=== PATIENT | male | born 1965 | race Caucasian/White ===

== ENCOUNTER → 2017-03-06 | Outpatient (REF) | payer SELFPAY ==
[2017-03-06 12:03] LABS: ALBUMIN 4.2 GM/DL (3.2-5.2); ALBUMIN/GLOBULIN RATIO 1.35 (1.00-1.93); ALKALINE PHOSPHATASE 80 U/L (45-117); ALT/SGPT 39 U/L (12-78); ANION GAP 6 MEQ/L (8-16); AST/SGOT 31 U/L (15-37); BILIRUBIN,TOTAL 0.7 MG/DL (0.2-1.0); BLOOD UREA NITROGEN 18 MG/DL (7-18); CALCIUM LEVEL 8.8 MG/DL (8.5-10.1); CARBON DIOXIDE LEVEL 31 MEQ/L (21-32); CHLORIDE LEVEL 106 MEQ/L (98-107); CHOLESTEROL LEVEL 209 MG/DL (<200); GLOMERULAR FILTRATION RATE > 60.0 (>60); GLUCOSE, FASTING 76 MG/DL (70-105); POTASSIUM SERUM 4.2 MEQ/L (3.5-5.1); SODIUM LEVEL 143 MEQ/L (136-145); TOTAL PROTEIN 7.3 GM/DL (6.4-8.2); TRIGLYCERIDES LEVEL 106 MG/DL (<150)
== END ==
LOC: M SFHCPLAZ 10:09
PROVIDERS: ATTEND Internal Medicine
DX: E78.00 Pure hypercholesterolemia, unspecified (principal)

== ENCOUNTER → 2018-06-08 | Outpatient (REF) | payer SELFPAY ==
[2018-06-08 11:54] LABS: HEMATOCRIT 43.3 % (42.0-52.0); HEMOGLOBIN 14.9 g/dl (13.5-17.5); MEAN CORPUSCULAR HEMOGLOBIN 28.8 pg (27.0-33.0); MEAN CORPUSCULAR HGB CONC 34.4 g/dl (32.0-36.5); MEAN CORPUSCULAR VOLUME 83.6 fl (80.0-96.0); PLATELET COUNT, AUTOMATED 305 10^3/uL (150-450); RED BLOOD COUNT 5.18 10^6/uL (4.30-6.10); RED CELL DISTRIBUTION WIDTH 12.2 % (11.5-14.5); WHITE BLOOD COUNT 6.2 10^3/uL (4.0-10.0)
[2018-06-08 15:56] LABS: ALBUMIN 4.4 GM/DL (3.2-5.2); ALBUMIN/GLOBULIN RATIO 1.57 (1.00-1.93); ALKALINE PHOSPHATASE 87 U/L (45-117); ALT/SGPT 47 U/L (12-78); ANION GAP 8 MEQ/L (8-16); AST/SGOT 24 U/L (7-37); BILIRUBIN,TOTAL 0.5 MG/DL (0.2-1.0); BLOOD UREA NITROGEN 18 MG/DL (7-18); CALCIUM LEVEL 9.2 MG/DL (8.5-10.1); CARBON DIOXIDE LEVEL 27 MEQ/L (21-32); CHLORIDE LEVEL 106 MEQ/L (98-107); CHOLESTEROL LEVEL 212 MG/DL (<200); CHOLESTEROL RISK RATIO 4.818 (<5); CREATININE FOR GFR 0.95 MG/DL (0.70-1.30); GLOMERULAR FILTRATION RATE > 60.0 (>56); GLUCOSE, FASTING 79 MG/DL (70-100); HDL CHOLESTEROL 44 MG/DL (>40); LDL CHOLESTEROL 136 MG/DL (<100); NON-HDL-C 168 MG/DL; POTASSIUM SERUM 4.3 MEQ/L (3.5-5.1); SODIUM LEVEL 141 MEQ/L (136-145); TOTAL PROTEIN 7.2 GM/DL (6.4-8.2); TRIGLYCERIDES LEVEL 161 MG/DL (<150)
== END ==
LOC: M SFHCPLAZ 10:22
DX: E78.00 Pure hypercholesterolemia, unspecified (principal); F99 Mental disorder, not otherwise specified

== ENCOUNTER 2019-03-22 07:23 | Day surgery (SDC) | payer BC ==
[~2019-03-22] VITALS: Ht 175.3 cm; Wt 86.7 kg
[~2019-03-22 07:23] MED LIST: AMBI5TAB PO; ASPI81TA85 PO; GEOD40CA13 PO; NS 1,000 ML IV SCH; PRAV40TA2 PO; SERT-138 PO
[2019-03-22] MEDS ORDERED: PROPOFOL 200 MG/20 ML VIAL As Ordered ONE (07:40)
[2019-03-22] MEDS ORDERED: LIDOCAINE 2% INJ 100 MG/5 ML SDV (FOR ANES.) As Ordered ONE (07:40)
--- NOTE | 2019-03-22 09:30 | ROOR ---
Patient Name: Tommie Vásquez Procedure Date: 03/22/2019 8:56 AM Date of : 1965 Age: 53 Room: [facility] Gender: Male Note Status: Finalized Procedure: Colonoscopy Indications: Screening for colorectal malignant neoplasm Providers: Benjamin Varela MD Referring MD: Allan Salinas MD Requesting Provider: Medicines: Monitored Anesthesia Care Complications: No immediate complications. Procedure: Pre-Anesthesia Assessment: - Prior to the procedure, a History and Physical was performed, and patient medications and allergies were reviewed. The patient is competent. The risks and benefits of the procedure and the sedation options and risks were discussed with the patient. All questions were answered and informed consent was obtained. Patient identification and proposed procedure were verified by the physician, the nurse and the anesthesiologist in the procedure room. Mental Status Examination: alert and oriented. Airway Examination: normal oropharyngeal airway and neck mobility. Respiratory Examination: clear to auscultation. CV Examination: normal. Prophylactic Antibiotics: The patient does not require prophylactic antibiotics. Prior Anticoagulants: The patient has taken no previous anticoagulant or antiplatelet agents. ASA Grade Assessment: II - A patient with mild systemic disease. After reviewing the risks and benefits, the patient was deemed in satisfactory condition to undergo the procedure. The anesthesia plan was to use monitored anesthesia care (MAC). Immediately prior to administration of medications, the patient was re-assessed for adequacy to receive sedatives. The heart rate, respiratory rate, oxygen saturations, blood pressure, adequacy of pulmonary ventilation, and response to care were monitored throughout the procedure. The physical status of the patient was re-assessed after the procedure. The Colonoscope was introduced through the anus and advanced to the terminal ileum, with identification of the appendiceal orifice and IC valve. The colonoscopy was performed without difficulty. The patient tolerated the procedure well. The quality of the bowel preparation was good. The terminal ileum, ileocecal valve, appendiceal orifice, and rectum were photographed. Scope insertion time was 2 minutes. Scope withdrawal time was 10 minutes. The total duration of the procedure was 12 minutes. Findings: The perianal and digital rectal examinations were normal. The terminal ileum appeared normal. A 8 mm polyp was found in the transverse colon. The polyp was sessile. The polyp was removed with a cold snare. Resection and retrieval were complete. Verification of patient identification for the specimen was done by the physician and nurse using the patient's name, date and medical record number. Estimated blood loss was minimal. A 4 mm polyp was found in the rectum. The polyp was sessile. The polyp was removed with a cold snare. Resection and retrieval were complete. Scattered small and large-mouthed diverticula were found from sigmoid to ascending colon. There was no evidence of diverticular bleeding. Non-bleeding external and internal hemorrhoids were found during retroflexion. The hemorrhoids were small. Impression: - The examined portion of the ileum was normal. - One 8 mm polyp in the transverse colon, removed with a cold snare. Resected and retrieved. - One 4 mm polyp in the rectum, removed with a cold snare. Resected and retrieved. - Moderate diverticulosis from sigmoid to ascending colon. There was no evidence of diverticular bleeding. - Non-bleeding external and internal hemorrhoids. Recommendation: - Patient has a contact number available for emergencies. The signs and symptoms of potential delayed complications were discussed with the patient. Return to normal activities tomorrow. Written discharge instructions were provided to the patient. - High fiber diet. - Continue present medications. - Await pathology results. - Repeat colonoscopy in 5-10 years for surveillance based on pathology results. - Telephone GI clinic for pathology results in 2 weeks. - Return to primary care physician. Benjamin Varela MD Benjamin Varela MD 03/22/2019 9:30:32 AM Electronically signed by Benjamin Varela MD Number of Addenda: 0 Note Initiated On: 03/22/2019 8:56 AM Estimated Blood Loss: Estimated blood loss: none.
[2019-03-22 09:44] VITALS: BP 118/77
== END 2019-03-22 09:52 | disposition home or self-care (01) ==
LOC: M OPP 07:23
PROVIDERS: ATTEND Internal Medicine Gastroenterology
DX: Z12.11 Encounter for screening for malignant neoplasm of colon (principal); D12.3 Benign neoplasm of transverse colon; K62.1 Rectal polyp; K57.30 Diverticulosis of large intestine without perforation or abscess without bleeding; E78.5 Hyperlipidemia, unspecified; F41.9 Anxiety disorder, unspecified; F32.9 Major depressive disorder, single episode, unspecified; Z79.82 Long term (current) use of aspirin; Z79.899 Other long term (current) drug therapy

== ENCOUNTER → 2019-06-05 | Outpatient (REF) | payer SELFPAY ==
[~2019-06-05] MED LIST changes: -NS 1,000 ML IV SCH
[2019-06-05 10:57] LABS: MEAN CORPUSCULAR HEMOGLOBIN 28.8 pg (27.0-33.0); MEAN CORPUSCULAR HGB CONC 34.1 g/dl (32.0-36.5); MEAN CORPUSCULAR VOLUME 84.5 fl (80.0-96.0); PLATELET COUNT, AUTOMATED 286 10^3/uL (150-450); RED BLOOD COUNT 5.21 10^6/uL (4.30-6.10); WHITE BLOOD COUNT 5.9 10^3/uL (4.0-10.0)
[2019-06-05 11:27] LABS: ALT/SGPT 46 U/L (12-78); BILIRUBIN,TOTAL 0.6 MG/DL (0.2-1.0); BLOOD UREA NITROGEN 18 MG/DL (7-18); CALCIUM LEVEL 8.8 MG/DL (8.5-10.1); CARBON DIOXIDE LEVEL 28 MEQ/L (21-32); CHLORIDE LEVEL 107 MEQ/L (98-107); CHOLESTEROL LEVEL 206 MG/DL (<200); CHOLESTEROL RISK RATIO 4.382 (<5); CREATININE FOR GFR 0.99 MG/DL (0.70-1.30); GLOMERULAR FILTRATION RATE > 60.0 (>56); GLUCOSE, FASTING 79 MG/DL (70-100); HDL CHOLESTEROL 47 MG/DL (>40); LDL CHOLESTEROL 135 MG/DL (<100); NON-HDL-C 159 MG/DL; POTASSIUM SERUM 4.4 MEQ/L (3.5-5.1); SODIUM LEVEL 140 MEQ/L (136-145); TRIGLYCERIDES LEVEL 119 MG/DL (<150)
== END ==
LOC: M SFHCPLAZ 09:50
PROVIDERS: ATTEND Internal Medicine
DX: E78.00 Pure hypercholesterolemia, unspecified (principal)

== ENCOUNTER → 2020-06-17 | Outpatient (CLI) | payer BC ==
[~2020-06-17] MED LIST changes: -ASPI81TA85 PO; +ASPI81TA86 PO
[2020-06-17 14:10] LABS: HEMATOCRIT 43.9 % (42.0-52.0); HEMOGLOBIN 14.5 g/dl (13.5-17.5); MEAN CORPUSCULAR HEMOGLOBIN 28.3 pg (27.0-33.0); MEAN CORPUSCULAR VOLUME 85.6 fl (80.0-96.0); PLATELET COUNT, AUTOMATED 289 10^3/uL (150-450); RED BLOOD COUNT 5.13 10^6/uL (4.30-6.10)
[2020-06-17 14:44] LABS: ALBUMIN 4.2 GM/DL (3.2-5.2); ALT/SGPT 56 U/L (12-78); BILIRUBIN,TOTAL 0.7 MG/DL (0.2-1.0); BLOOD UREA NITROGEN 18 MG/DL (7-18); CALCIUM LEVEL 9.8 MG/DL (8.5-10.1); CARBON DIOXIDE LEVEL 30 MEQ/L (21-32); CHLORIDE LEVEL 107 MEQ/L (98-107); CHOLESTEROL LEVEL 212 MG/DL (<200); CHOLESTEROL RISK RATIO 4.711 (<5); CREATININE FOR GFR 1.04 MG/DL (0.70-1.30); GLOMERULAR FILTRATION RATE > 60.0 (>56); GLUCOSE, FASTING 84 MG/DL (70-100); HDL CHOLESTEROL 45 MG/DL (>40); LDL CHOLESTEROL 141 MG/DL (<100); NON-HDL-C 167 MG/DL; SODIUM LEVEL 141 MEQ/L (136-145); TOTAL PROTEIN 7.4 GM/DL (6.4-8.2); TRIGLYCERIDES LEVEL 128 MG/DL (<150)
== END ==
LOC: M PLALAB 10:52
PROVIDERS: ATTEND Internal Medicine
DX: E78.00 Pure hypercholesterolemia, unspecified (principal); Z86.010 Personal history of colon polyps; Z12.5 Encounter for screening for malignant neoplasm of prostate

== ENCOUNTER → 2021-06-23 | Outpatient (CLI) | payer BC ==
[2021-06-23 13:40] LABS: BASO % 0.7 % (0.0-1.0); EOS # 0.2 10^3/uL (0.0-0.5); EOS % 3.9 % (0.0-3.0); HEMATOCRIT 41.3 % (42.0-52.0); HEMOGLOBIN 13.9 g/dl (13.5-17.5); LYMPH # 1.2 10^3/uL (1.5-5.0); LYMPH % 20.1 % (24.0-44.0); MEAN CORPUSCULAR HEMOGLOBIN 28.7 pg (27.0-33.0); MEAN CORPUSCULAR HGB CONC 33.7 g/dl (32.0-36.5); MEAN CORPUSCULAR VOLUME 85.3 fl (80.0-96.0); MONO # 0.5 10^3/uL (0.0-0.8); MONO % 8.3 % (2.0-8.0); NEUTROPHILS # 3.9 10^3/uL (1.5-8.5); NEUTROPHILS % 66.7 % (36.0-66.0); PLATELET COUNT, AUTOMATED 291 10^3/uL (150-450); RED BLOOD COUNT 4.84 10^6/uL (4.30-6.10); WHITE BLOOD COUNT 5.9 10^3/uL (4.0-10.0)
[2021-06-23 14:14] LABS: ALBUMIN 4.2 GM/DL (3.2-5.2); ALT/SGPT 54 U/L (12-78); BILIRUBIN,TOTAL 0.6 MG/DL (0.2-1.0); BLOOD UREA NITROGEN 18 MG/DL (7-18); CALCIUM LEVEL 9.1 MG/DL (8.5-10.1); CARBON DIOXIDE LEVEL 28 MEQ/L (21-32); CHLORIDE LEVEL 108 MEQ/L (98-107); CHOLESTEROL LEVEL 199 MG/DL (<200); CHOLESTEROL RISK RATIO 4.145 (<5); CREATININE FOR GFR 1.01 MG/DL (0.70-1.30); GLOMERULAR FILTRATION RATE > 60.0 (>56); GLUCOSE, FASTING 89 MG/DL (70-100); HDL CHOLESTEROL 48 MG/DL (>40); LDL CHOLESTEROL 132 MG/DL (<100); NON-HDL-C 151 MG/DL; POTASSIUM SERUM 4.4 MEQ/L (3.5-5.1); SODIUM LEVEL 141 MEQ/L (136-145); THYROID STIMULATING HORMONE 0.847 uIU/ML (0.358-3.740); TOTAL PROTEIN 7.2 GM/DL (6.4-8.2); TRIGLYCERIDES LEVEL 93 MG/DL (<150)
[2021-06-23 15:17] LABS: HEPATITIS C VIRUS ABY INDEX 0.1 INDEX (<0.8)
== END ==
LOC: M PLALAB 10:32
PROVIDERS: ATTEND Internal Medicine
DX: Z00.00 Encounter for general adult medical examination without abnormal findings (principal); Z12.5 Encounter for screening for malignant neoplasm of prostate; Z86.010 Personal history of colon polyps; E78.00 Pure hypercholesterolemia, unspecified
CPT/HCPCS: 36415; 80053; 80061; 84443; 85025; 86803; G0103

== ENCOUNTER → 2021-06-23 | Outpatient (REF) | payer BC | LOC: M SFHCPLAZ 10:15 | PROVIDERS: ATTEND Internal Medicine | DX: Z00.00 Encounter for general adult medical examination without abnormal findings (principal); E78.00 Pure hypercholesterolemia, unspecified; Z86.010 Personal history of colon polyps; Z12.5 Encounter for screening for malignant neoplasm of prostate; Z11.59 Encounter for screening for other viral diseases ==

== ENCOUNTER 2021-11-11 15:32 | Inpatient (IN) | payer BC ==
[~2021-11-11] VITALS: Ht 175.3 cm; Wt 88.5 kg
[2021-11-11 17:21] LABS: HEMATOCRIT 43.1 % (42.0-52.0); HEMOGLOBIN 15.1 g/dl (13.5-17.5); MEAN CORPUSCULAR VOLUME 82.7 fl (80.0-96.0); PLATELET COUNT, AUTOMATED 335 10^3/uL (150-450); RED BLOOD COUNT 5.21 10^6/uL (4.30-6.10); WHITE BLOOD COUNT 9.3 10^3/uL (4.0-10.0)
[2021-11-11 17:35] LABS: AMPHETAMINES LEVEL URINE NEGATIVE (NEGATIVE); BARBITURATES URINE NEGATIVE (NEGATIVE); BENZODIAZEPINES URINE NEGATIVE (NEGATIVE); CANNABINOIDS URINE NEGATIVE (NEGATIVE); COCAINE METABOLITE URINE NEGATIVE (NEGATIVE); METHADONE URINE NEGATIVE (NEGATIVE); OPIATES URINE NEGATIVE (NEGATIVE); PHENCYCLIDINE URINE NEGATIVE (NEGATIVE)
[2021-11-11 17:46] LABS: ACETAMINOPHEN LEVEL < 2.0 UG/ML (10.0-30.0); ALBUMIN 4.5 GM/DL (3.2-5.2); ALT/SGPT 61 U/L (12-78); BILIRUBIN,DIRECT 0.1 MG/DL (0.0-0.2); BILIRUBIN,TOTAL 0.4 MG/DL (0.2-1.0); BLOOD UREA NITROGEN 17 MG/DL (7-18); CALCIUM LEVEL 9.3 MG/DL (8.5-10.1); CARBON DIOXIDE LEVEL 25 MEQ/L (21-32); CHLORIDE LEVEL 108 MEQ/L (98-107); ETHYL ALCOHOL (ETHANOL) < 0.003 % (0.000-0.010); GLOMERULAR FILTRATION RATE > 60.0 (>56); GLUCOSE, FASTING 133 MG/DL (70-100); POTASSIUM SERUM 4.5 MEQ/L (3.5-5.1); SALICYLATE LEVEL < 1.7 MG/DL (5.0-30.0); SODIUM LEVEL 137 MEQ/L (136-145); TOTAL PROTEIN 7.9 GM/DL (6.4-8.2)
[2021-11-11 17:51] LABS: RSV AMPLIFICATION NEGATIVE (NEGATIVE)
[2021-11-11] MEDS ORDERED: ASPI81TA26 PO (18:33)
[2021-11-11] MEDS ORDERED: ZOLO100T PO (18:35)
[2021-11-11] MEDS ORDERED: ZIPR20CA13 PO (18:35)
[2021-11-11] MEDS ORDERED: HOME MED LIST COMPLETE! XX SCH (18:40)
[2021-11-11] MEDS ORDERED: ZIPRASIDONE 20MG CAPSULE (GEODON) PO ONE (21:55)
[2021-11-11] MEDS ORDERED: PRAVASTATIN 20 MG TAB PO ONE (22:30)
[2021-11-12] MEDS: ASPIRIN 81MG ENTERIC TABLET PO SCH (09:00)
[2021-11-12] MEDS: SERTRALINE 100 MG TAB PO SCH (09:00)
[2021-11-12] MEDS ORDERED: MOM 30ML SUSPENSION UDC PO PRN (14:35)
[2021-11-12] MEDS ORDERED: MAALOX 30 ML SUSP *UDC PO PRN (14:35)
[2021-11-12] MEDS ORDERED: OLANZapine ORAL DISINTEGRATING TAB 5MG PO PRN (14:35)
[2021-11-12] MEDS ORDERED: ACETAMINOPHEN TAB 650MG DOSE (2X325MG) PO PRN (14:35)
[2021-11-12] MEDS: ZIPRASIDONE 20MG CAPSULE (GEODON) PO SCH (18:00)
[2021-11-12 18:15] VITALS: BP 152/98
[2021-11-12] MEDS: PRAVASTATIN 20 MG TAB PO SCH (21:00)
[2021-11-12] MEDS ORDERED: PRAVASTATIN 20 MG TAB PO SCH (21:00)
[2021-11-13 06:31] VITALS: BP 122/75
[2021-11-13] MEDS: ZIPRASIDONE 20MG CAPSULE (GEODON) PO SCH ×2 (08:00→18:00)
[2021-11-13] MEDS: SERTRALINE 100 MG TAB PO SCH (09:00)
[2021-11-13] MEDS: ASPIRIN 81MG ENTERIC TABLET PO SCH (09:00)
[2021-11-13] MEDS: PRAVASTATIN 20 MG TAB PO SCH (20:51)
[2021-11-14 06:21] VITALS: BP 150/65
[2021-11-14] MEDS: ZIPRASIDONE 20MG CAPSULE (GEODON) PO SCH ×3 (08:00→18:28)
[2021-11-14] MEDS: ASPIRIN 81MG ENTERIC TABLET PO SCH (08:54)
[2021-11-14] MEDS: SERTRALINE 100 MG TAB PO SCH (08:54)
[2021-11-14] MEDS: PRAVASTATIN 20 MG TAB PO SCH (21:00)
[2021-11-15 06:24] VITALS: BP 135/90
[2021-11-15] MEDS: ASPIRIN 81MG ENTERIC TABLET PO SCH (08:01)
[2021-11-15] MEDS: ZIPRASIDONE 20MG CAPSULE (GEODON) PO SCH ×2 (08:01→17:25)
[2021-11-15] MEDS: SERTRALINE 100 MG TAB PO SCH (08:01)
[2021-11-15 17:44] VITALS: BP 140/88
[2021-11-15] MEDS: PRAVASTATIN 20 MG TAB PO SCH (22:01)
[2021-11-16] MEDS: ZIPRASIDONE 20MG CAPSULE (GEODON) PO SCH ×2 (10:11→18:13)
[2021-11-16] MEDS: SERTRALINE 100 MG TAB PO SCH (10:12)
[2021-11-16] MEDS: ASPIRIN 81MG ENTERIC TABLET PO SCH (10:13)
[2021-11-16 16:26] LABS: BLOOD UREA NITROGEN 20 MG/DL (7-18); CALCIUM LEVEL 9.2 MG/DL (8.5-10.1); CARBON DIOXIDE LEVEL 29 MEQ/L (21-32); CHLORIDE LEVEL 106 MEQ/L (98-107); CREATININE FOR GFR 0.95 MG/DL (0.70-1.30); GLOMERULAR FILTRATION RATE > 60.0 (>56); GLUCOSE, FASTING 82 MG/DL (70-100); POTASSIUM SERUM 4.7 MEQ/L (3.5-5.1); SODIUM LEVEL 139 MEQ/L (136-145)
[2021-11-16] MEDS: PRAVASTATIN 20 MG TAB PO SCH (21:44)
[2021-11-17 06:00] VITALS: BP 131/86
[2021-11-17] MEDS: ASPIRIN 81MG ENTERIC TABLET PO SCH (09:09)
[2021-11-17] MEDS: SERTRALINE 100 MG TAB PO SCH (09:09)
[2021-11-17] MEDS: ZIPRASIDONE 20MG CAPSULE (GEODON) PO SCH ×2 (09:10→18:00)
[2021-11-17] MEDS: PRAVASTATIN 20 MG TAB PO SCH (22:05)
[2021-11-18] MEDS ORDERED: ZIPRASIDONE 20MG CAPSULE (GEODON) PO SCH (08:00)
[2021-11-18] MEDS: ASPIRIN 81MG ENTERIC TABLET PO SCH (10:05)
[2021-11-18] MEDS: SERTRALINE 100 MG TAB PO SCH (10:05)
[2021-11-18] MEDS: ZIPRASIDONE 20MG CAPSULE (GEODON) PO SCH (18:00)
[2021-11-18] MEDS: PRAVASTATIN 20 MG TAB PO SCH (20:07)
[2021-11-18] MEDS: traZODone 50 MG TAB PO PRN (20:29)
[2021-11-19 06:33] VITALS: BP 133/83
[2021-11-19] MEDS: SERTRALINE 100 MG TAB PO SCH (08:09)
[2021-11-19] MEDS: ASPIRIN 81MG ENTERIC TABLET PO SCH (08:09)
[2021-11-19] MEDS: ZIPRASIDONE 20MG CAPSULE (GEODON) PO SCH ×2 (08:10→17:05)
[2021-11-19 18:58] VITALS: BP 141/87
[2021-11-19] MEDS: PRAVASTATIN 20 MG TAB PO SCH (20:45)
[2021-11-19] MEDS: traZODone 50 MG TAB PO PRN (20:48)
[2021-11-20 06:00] VITALS: BP 125/77
[2021-11-20] MEDS: SERTRALINE 100 MG TAB PO SCH (08:46)
[2021-11-20] MEDS: ZIPRASIDONE 20MG CAPSULE (GEODON) PO SCH ×2 (08:46→17:19)
[2021-11-20] MEDS: ASPIRIN 81MG ENTERIC TABLET PO SCH (08:47)
[2021-11-20 18:30] VITALS: BP 130/78
[2021-11-20] MEDS: traZODone 50 MG TAB PO PRN (21:16)
[2021-11-20] MEDS: PRAVASTATIN 20 MG TAB PO SCH (21:16)
[2021-11-21 06:30] VITALS: BP 124/69
[2021-11-21] MEDS: ASPIRIN 81MG ENTERIC TABLET PO SCH (08:14)
[2021-11-21] MEDS: ZIPRASIDONE 20MG CAPSULE (GEODON) PO SCH ×2 (08:15→17:44)
[2021-11-21] MEDS: SERTRALINE 100 MG TAB PO SCH (08:15)
[2021-11-21 18:45] VITALS: BP 140/86
[2021-11-21] MEDS: PRAVASTATIN 20 MG TAB PO SCH (20:53)
[2021-11-21] MEDS: traZODone 50 MG TAB PO PRN (20:53)
[2021-11-22 06:38] VITALS: BP 138/89
[2021-11-22] MEDS: ZIPRASIDONE 20MG CAPSULE (GEODON) PO SCH ×2 (08:24→18:26)
[2021-11-22] MEDS: SERTRALINE 100 MG TAB PO SCH (08:24)
[2021-11-22] MEDS: ASPIRIN 81MG ENTERIC TABLET PO SCH (08:24)
[2021-11-22 16:21] VITALS: BP 125/72
[2021-11-22] MEDS: traZODone 50 MG TAB PO PRN (20:12)
[2021-11-22] MEDS: PRAVASTATIN 20 MG TAB PO SCH (20:13)
[2021-11-23 06:24] VITALS: BP 131/85
[2021-11-23] MEDS: ZIPRASIDONE 20MG CAPSULE (GEODON) PO SCH ×2 (08:31→17:52)
[2021-11-23] MEDS: SERTRALINE 100 MG TAB PO SCH (08:31)
[2021-11-23] MEDS: ASPIRIN 81MG ENTERIC TABLET PO SCH (08:31)
[2021-11-23 16:28] VITALS: BP 123/78
[2021-11-23] MEDS: PRAVASTATIN 20 MG TAB PO SCH (21:35)
[2021-11-23] MEDS: traZODone 50 MG TAB PO PRN (21:35)
[2021-11-24 06:49] VITALS: BP 134/85
[2021-11-24] MEDS: ZIPRASIDONE 20MG CAPSULE (GEODON) PO SCH ×2 (08:01→18:21)
[2021-11-24] MEDS: ASPIRIN 81MG ENTERIC TABLET PO SCH (08:01)
[2021-11-24] MEDS: SERTRALINE 100 MG TAB PO SCH (08:01)
[2021-11-24 19:01] VITALS: BP 132/88
[2021-11-24] MEDS: hydrOXYzine 50 MG TAB PO PRN (20:20)
[2021-11-24] MEDS: traZODone 50 MG TAB PO PRN (20:21)
[2021-11-24] MEDS: PRAVASTATIN 20 MG TAB PO SCH (20:21)
[2021-11-25 06:59] VITALS: BP 141/98
[2021-11-25] MEDS: ASPIRIN 81MG ENTERIC TABLET PO SCH (08:31)
[2021-11-25] MEDS: SERTRALINE 100 MG TAB PO SCH (08:31)
[2021-11-25] MEDS: ZIPRASIDONE 20MG CAPSULE (GEODON) PO SCH ×2 (08:32→17:23)
[2021-11-25 18:45] VITALS: BP 127/85
[2021-11-25] MEDS: hydrOXYzine 50 MG TAB PO PRN (20:31)
[2021-11-25] MEDS: PRAVASTATIN 20 MG TAB PO SCH (20:31)
[2021-11-26 06:23] VITALS: BP 137/83
[2021-11-26] MEDS ORDERED: hydrOXYzine 10 MG TAB PO ONE (08:25)
[2021-11-26] MEDS: ASPIRIN 81MG ENTERIC TABLET PO SCH (08:31)
[2021-11-26] MEDS: ZIPRASIDONE 20MG CAPSULE (GEODON) PO SCH ×2 (08:32→17:39)
[2021-11-26] MEDS: SERTRALINE 100 MG TAB PO SCH (08:32)
[2021-11-26 16:38] VITALS: BP 130/73
[2021-11-26] MEDS: PRAVASTATIN 20 MG TAB PO SCH (20:08)
[2021-11-27 07:07] VITALS: BP 155/96
[2021-11-27] MEDS: SERTRALINE 100 MG TAB PO SCH (08:38)
[2021-11-27] MEDS: ZIPRASIDONE 20MG CAPSULE (GEODON) PO SCH ×2 (08:38→18:24)
[2021-11-27] MEDS: ASPIRIN 81MG ENTERIC TABLET PO SCH (08:38)
[2021-11-27 09:26] LABS: CHOLESTEROL RISK RATIO 3.5 (<5)
[2021-11-27] MEDS ORDERED: hydrOXYzine 10 MG TAB PO PRN (10:00)
[2021-11-27 16:06] VITALS: BP 129/87
[2021-11-27] MEDS: PRAVASTATIN 20 MG TAB PO SCH (20:40)
[2021-11-27] MEDS: hydrOXYzine 50 MG TAB PO PRN (20:40)
[2021-11-28 06:00] VITALS: BP 169/90
[2021-11-28] MEDS: ZIPRASIDONE 20MG CAPSULE (GEODON) PO SCH ×2 (08:02→18:33)
[2021-11-28] MEDS: ASPIRIN 81MG ENTERIC TABLET PO SCH (08:02)
[2021-11-28] MEDS: SERTRALINE 100 MG TAB PO SCH (08:02)
[2021-11-28 16:12] VITALS: BP 128/84
[2021-11-28] MEDS: hydrOXYzine 50 MG TAB PO PRN (21:55)
[2021-11-28] MEDS: PRAVASTATIN 20 MG TAB PO SCH (21:55)
[2021-11-29 06:50] VITALS: BP 125/78
[2021-11-29] MEDS: SERTRALINE 100 MG TAB PO SCH (08:37)
[2021-11-29] MEDS: ZIPRASIDONE 20MG CAPSULE (GEODON) PO SCH ×2 (08:37→17:30)
[2021-11-29] MEDS: ASPIRIN 81MG ENTERIC TABLET PO SCH (08:37)
[2021-11-29] MEDS: hydrOXYzine 25 MG TAB PO SCH (12:14)
[2021-11-29 19:10] VITALS: BP 131/78
[2021-11-29] MEDS: PRAVASTATIN 20 MG TAB PO SCH (21:25)
[2021-11-30 06:48] VITALS: BP 123/79
[2021-11-30] MEDS: hydrOXYzine 25 MG TAB PO SCH (08:14)
[2021-11-30] MEDS: ASPIRIN 81MG ENTERIC TABLET PO SCH (08:14)
[2021-11-30] MEDS: ZIPRASIDONE 20MG CAPSULE (GEODON) PO SCH ×2 (08:15→17:45)
[2021-11-30] MEDS: SERTRALINE 100 MG TAB PO SCH (08:15)
[2021-11-30 18:28] VITALS: BP 127/59
[2021-11-30] MEDS: hydrOXYzine 50 MG TAB PO PRN (21:01)
[2021-11-30] MEDS: PRAVASTATIN 20 MG TAB PO SCH (21:02)
[2021-12-01 06:47] VITALS: BP 143/85
[2021-12-01] MEDS: ZIPRASIDONE 20MG CAPSULE (GEODON) PO SCH ×2 (08:23→17:48)
[2021-12-01] MEDS: hydrOXYzine 25 MG TAB PO SCH (08:24)
[2021-12-01] MEDS: SERTRALINE 100 MG TAB PO SCH (08:24)
[2021-12-01] MEDS: ASPIRIN 81MG ENTERIC TABLET PO SCH (08:24)
[2021-12-01 18:06] VITALS: BP 127/79
[2021-12-01] MEDS: PRAVASTATIN 20 MG TAB PO SCH (20:43)
[2021-12-02 06:45] VITALS: BP 145/98
[2021-12-02 08:22] VITALS: BP 145/98
[2021-12-02] MEDS: ASPIRIN 81MG ENTERIC TABLET PO SCH (08:51)
[2021-12-02] MEDS: ZIPRASIDONE 20MG CAPSULE (GEODON) PO SCH ×2 (08:52→17:06)
[2021-12-02] MEDS: hydrOXYzine 25 MG TAB PO SCH (08:52)
[2021-12-02] MEDS: SERTRALINE 100 MG TAB PO SCH (08:52)
[2021-12-02 16:03] VITALS: BP 114/61
[2021-12-02] MEDS: PRAVASTATIN 20 MG TAB PO SCH (20:53)
[2021-12-02] MEDS: hydrOXYzine 50 MG TAB PO PRN (20:55)
[2021-12-03 06:14] VITALS: BP 130/84
[2021-12-03] MEDS: ZIPRASIDONE 20MG CAPSULE (GEODON) PO SCH (08:23)
[2021-12-03] MEDS: ASPIRIN 81MG ENTERIC TABLET PO SCH (08:23)
[2021-12-03] MEDS: SERTRALINE 100 MG TAB PO SCH (08:23)
[2021-12-03] MEDS: hydrOXYzine 25 MG TAB PO SCH (08:23)
[2021-12-03] MEDS ORDERED: GEOD20CA PO ×2 (10:46)
[2021-12-03] MEDS ORDERED: HYDR-3363 PO ×3 (10:46→14:00)
[2021-12-03] MEDS ORDERED: ASPI-551 PO (10:46)
[2021-12-03] MEDS ORDERED: ZOLO100T PO ×2 (10:46→13:52)
[2021-12-03] MEDS ORDERED: PRAV20TA2 PO ×3 (10:46→14:03)
[2021-12-03] MEDS ORDERED: GEOD40CA13 PO (13:54)
[2021-12-03] MEDS ORDERED: ZIPR60CA11 PO (13:56)
[2021-12-03] MEDS ORDERED: ECOT81TA5 PO (14:03)
[2021-12-03] MEDS ORDERED: PRAV40TA2 PO (14:06)
== END 2021-12-03 13:06 | disposition home or self-care (01) | DRG 751 ==
LOC: M ED 15:32 → M ED INP 11-12 14:31 → M PSY 11-12 17:46
PROVIDERS: ADMIT Psychiatry & Neurology Psychiatry; ATTEND Psychiatry & Neurology Psychiatry
DX: F33.3 Major depressive disorder, recurrent, severe with psychotic symptoms (principal); F29 Unspecified psychosis not due to a substance or known physiological condition; F60.7 Dependent personality disorder; F41.9 Anxiety disorder, unspecified; F42.9 Obsessive-compulsive disorder, unspecified; Z90.01 Acquired absence of eye; Z62.810 Personal history of physical and sexual abuse in childhood; Z79.82 Long term (current) use of aspirin; Z79.899 Other long term (current) drug therapy; R33.9 Retention of urine, unspecified

== ENCOUNTER → 2022-05-26 | Outpatient (CLI) | payer BC ==
[~2022-05-26] MED LIST changes: +ASPI-551 PO; +ASPI81TA26 PO; +ECOT81TA5 PO; +GEOD20CA PO; +HYDR-3363 PO; +PRAV20TA2 PO; +ZIPR20CA13 PO; +ZIPR60CA11 PO; +ZOLO100T PO
== END ==
LOC: M SOG 09:09
PROVIDERS: ATTEND Orthopaedic Surgery Hand Surgery
DX: M79.645 Pain in left finger(s) (principal)

== ENCOUNTER 2022-05-27 09:19 | Day surgery (SDC) | payer BC ==
[~2022-05-27] VITALS: Ht 175.3 cm; Wt 90.7 kg
[~2022-05-27 09:19] MED LIST changes: +LIDOCAINE 2% 100MG/5ML SDV (FOR ANES.) As Ordered ONE; +MIDAZOLAM INJ 2MG/2ML VIAL (J2250 PER 1MG) As Ordered ONE; +fentaNYL 100 MCG/2 ML INJECTION As Ordered ONE; +propofoL 200 MG/20 ML VIAL As Ordered ONE
[2022-05-27] MEDS ORDERED: LR 1,000 ML IV SCH ×2 (09:30→11:55)
[2022-05-27] MEDS ORDERED: ACETAMINOPHEN 1000MG 100ML IV BTL (OFIRMEV) (J0131 PER 10MG) As Ordered ONE ×2 (09:32→10:44)
[2022-05-27] MEDS ORDERED: ceFAZolin 2 GM/D5W 50 ML IV BAG (J0690 PER 500MG) As Ordered ONE (10:11)
[2022-05-27] MEDS ORDERED: BUPIVACAINE HCL 0.25% 30ML VIAL As Ordered ONE (10:19)
[2022-05-27] MEDS ORDERED: ceFAZolin SOD 2 GM in IV 1 EA IV ONE (10:20)
[2022-05-27] MEDS ORDERED: BACITRACIN OINTMENT 30GM TUBE As Ordered ONE (10:23)
[2022-05-27] MEDS ORDERED: ONDANSETRON 4MG 2ML VIAL As Ordered ONE (10:41)
[2022-05-27] MEDS ORDERED: dexameTHASONE 4 MG/ML 1ML VIAL (J1100 PER 1MG) As Ordered ONE (10:41)
[2022-05-27] MEDS ORDERED: ePHEDrine SULFATE 25 MG/5 ML(5MG/ML) SYRINGE As Ordered ONE (10:54)
[2022-05-27] MEDS ORDERED: KETOROLAC 60MG 2ML VIAL As Ordered ONE (11:02)
[2022-05-27] MEDS ORDERED: oxyCODONE 5MG TAB PO PRN (11:55)
[2022-05-27] MEDS ORDERED: ONDANSETRON 4MG 2ML VIAL IV PRN (11:55)
[2022-05-27] MEDS ORDERED: fentaNYL 100 MCG/2 ML INJECTION IV PRN (11:55)
[2022-05-27] MEDS ORDERED: METOCLOPRAMIDE INJ 10MG/2ML VIAL (J2765 PER 1) IV PRN (11:55)
[2022-05-27 13:50] VITALS: BP 136/71
== END 2022-05-27 14:02 | disposition home or self-care (01) ==
LOC: M SDC 09:19
PROVIDERS: ATTEND Orthopaedic Surgery Hand Surgery
DX: S61.012A Laceration without foreign body of left thumb without damage to nail, initial encounter (principal); X58.XXXA Exposure to other specified factors, initial encounter; Y92.89 Other specified places as the place of occurrence of the external cause; Y93.9 Activity, unspecified; E78.5 Hyperlipidemia, unspecified; F41.9 Anxiety disorder, unspecified; F32.A Depression, unspecified
CPT/HCPCS: 10180; 26418; 26727; 76000; 87635; J0131; J0690; J1100; J1885; J2250; J2405; J3010

== ENCOUNTER → 2023-03-10 | Outpatient (CLI) | payer OTHER ==
[~2023-03-10] MED LIST changes: -LIDOCAINE 2% 100MG/5ML SDV (FOR ANES.) As Ordered ONE; -MIDAZOLAM INJ 2MG/2ML VIAL (J2250 PER 1MG) As Ordered ONE; -fentaNYL 100 MCG/2 ML INJECTION As Ordered ONE; -propofoL 200 MG/20 ML VIAL As Ordered ONE
[2023-03-10 14:29] LABS: BASO % 0.6 % (0.0-1.0); EOS # 0.2 10^3/uL (0.0-0.5); EOS % 3.8 % (0.0-3.0); HEMOGLOBIN 14.3 g/dl (13.5-17.5); LYMPH # 1.2 10^3/uL (1.5-5.0); LYMPH % 23.1 % (24.0-44.0); MEAN CORPUSCULAR HEMOGLOBIN 28.3 pg (27.0-33.0); MONO # 0.4 10^3/uL (0.0-0.8); MONO % 7.5 % (2.0-8.0); NEUTROPHILS # 3.4 10^3/uL (1.5-8.5); NEUTROPHILS % 64.6 % (36.0-66.0); PLATELET COUNT, AUTOMATED 268 10^3/uL (150-450); RED BLOOD COUNT 5.06 10^6/uL (4.30-6.10); WHITE BLOOD COUNT 5.2 10^3/uL (4.0-10.0)
[2023-03-10 14:39] LABS: HEMOGLOBIN A1c 5.4 % (4.0-6.0)
[2023-03-10 14:44] LABS: ALBUMIN 4.3 G/DL (3.2-5.2); ALKALINE PHOSPHATASE 78 U/L (46-116); ALT/SGPT 66 U/L (7.0-40); AST/SGOT 31 U/L (<34); BILIRUBIN,TOTAL 0.7 MG/DL (0.3-1.2); BLOOD UREA NITROGEN 19 MG/DL (9-23); CALCIUM LEVEL 9.2 MG/DL (8.5-10.1); CARBON DIOXIDE LEVEL 29 MMOL/L (20-31); CHLORIDE LEVEL 106 MMOL/L (98-107); CHOLESTEROL LEVEL 201 MG/DL (<200); CHOLESTEROL RISK RATIO 4.16 (<5); CREATININE FOR GFR 0.96 MG/DL (0.70-1.30); GLOMERULAR FILTRATION RATE > 60.0 (>56); GLUCOSE, FASTING 89 MG/DL (60-100); HDL CHOLESTEROL 48.3 MG/DL (>40); LDL CHOLESTEROL 128.5 MG/DL (<100); NON-HDL-C 152.7 MG/DL; POTASSIUM SERUM 4.9 MMOL/L (3.5-5.1); SODIUM LEVEL 143 MMOL/L (136-145); TRIGLYCERIDES LEVEL 121 MG/DL (<150)
== END ==
LOC: M PLALAB 09:44
DX: F29 Unspecified psychosis not due to a substance or known physiological condition (principal); F60.7 Dependent personality disorder

== ENCOUNTER → 2023-12-18 | Outpatient (CLI) | payer OTHER, BC | LOC: M WUC 08:45 | PROVIDERS: ATTEND Internal Medicine | DX: M54.50 Low back pain, unspecified (principal); M47.897 Other spondylosis, lumbosacral region ==

== ENCOUNTER → 2024-11-15 | Outpatient (CLI) | payer OTHER ==
[~2024-11-15] MED LIST changes: -GEOD40CA13 PO; +ZIPR40CA27 PO; -ZIPR60CA11 PO; +ZIPR60CA21 PO
[2024-11-15 13:23] LABS: BASO % 0.5 % (0.0-1.0); EOS # 0.3 10^3/uL (0.0-0.5); EOS % 4.4 % (0.0-3.0); HEMATOCRIT 42.6 % (42.0-52.0); HEMOGLOBIN 14.8 g/dl (13.5-17.5); LYMPH # 1.3 10^3/uL (1.5-5.0); LYMPH % 20.7 % (24.0-44.0); MEAN CORPUSCULAR HEMOGLOBIN 28.8 pg (27.0-33.0); MEAN CORPUSCULAR HGB CONC 34.7 g/dl (32.0-36.5); MEAN CORPUSCULAR VOLUME 82.9 fl (80.0-96.0); MONO # 0.5 10^3/uL (0.0-0.8); MONO % 8.7 % (2.0-8.0); NEUTROPHILS % 65.4 % (36.0-66.0); PLATELET COUNT, AUTOMATED 256 10^3/uL (150-450); RED BLOOD COUNT 5.14 10^6/uL (4.30-6.10); WHITE BLOOD COUNT 6.1 10^3/uL (4.0-10.0)
[2024-11-15 13:32] LABS: HEMOGLOBIN A1c 5.4 % (4.0-6.0)
[2024-11-15 13:49] LABS: ALBUMIN 4.3 G/DL (3.2-5.2); ALKALINE PHOSPHATASE 76 U/L (40-129); ALT/SGPT 79 U/L (7.0-40); AST/SGOT 40 U/L (<34); BILIRUBIN,TOTAL 0.7 MG/DL (0.3-1.2); BLOOD UREA NITROGEN 21 MG/DL (9-23); CARBON DIOXIDE LEVEL 28 MMOL/L (20-31); CHLORIDE LEVEL 107 MMOL/L (98-107); CHOLESTEROL LEVEL 194 MG/DL (<200); CHOLESTEROL RISK RATIO 4.23 (<5); CREATININE FOR GFR 0.96 MG/DL (0.70-1.30); GLOMERULAR FILTRATION RATE > 60.0 (>56); GLUCOSE, FASTING 90 MG/DL (60-100); HDL CHOLESTEROL 45.8 MG/DL (>40); NON-HDL-C 148.2 MG/DL; POTASSIUM SERUM 4.5 MMOL/L (3.5-5.1); SODIUM LEVEL 142 MMOL/L (136-145); TOTAL PROTEIN 7.1 G/DL (5.7-8.2); TRIGLYCERIDES LEVEL 146 MG/DL (<150)
== END ==
LOC: M PLALAB 09:44
PROVIDERS: ATTEND Psychiatry & Neurology Psychiatry
DX: F29 Unspecified psychosis not due to a substance or known physiological condition (principal)